=== PATIENT | male | born 1970 | race Caucasian/White ===

== ENCOUNTER 2018-03-11 12:13 | Day surgery (SDC) | payer BC ==
[~2018-03-11] VITALS: Ht 172.7 cm; Wt 111.1 kg
[~2018-03-11 12:13] MED LIST: AMBIEN10 MG PO; CIPRO500 MG; COLESTID5 GM; CYCLOBENZAPRINE10 MG PO; ERYTHROMYCIN3.5 GM OD; FENOFIBRATE40 MG PO; FLAGYL500 MG PO; LISINOPRIL10 MG PO; NORCO 5-325 TA1 EACH PO; PRILOSEC20 MG PO; RESTASIS1 DROP; VIAGRA100 MG PO
--- NOTE | 2018-03-11 13:41 | NUR ---
03/11/18 1341 Dee Noel 1328 PT ARRIVED DROWSY AND TALKING PT DENIES NAUSEA AND PAIN. RESP EVEN AND UNLABORED. 1338 PT TAKING SMALL SIPS OF SODA. 1340 O2 REMOVED O2 SAT 97%.
--- NOTE | 2018-03-11 16:27 | OR ---
[facility] [address], [place] [address] Signed DATE OF OPERATION: 03/11/2018 SURGEON: Dayami Mcqueen MD PREOPERATIVE DIAGNOSES: 1. Gastroesophageal reflux symptoms, no prior history of upper endoscopy. 2. Left-sided abdominal pain, clinical diverticulitis history. POSTOPERATIVE DIAGNOSES: 1. Hiatal hernia with no active esophagitis. 2. Diverticulosis of sigmoid and left colon without obvious inflammation. 3. Sessile polyps x2 (15 cm and 10 cm). PROCEDURES PERFORMED: 1. Total colonoscopy to the cecum with cold snare polypectomy x2. 2. Upper endoscopy with biopsy. ANESTHESIA: Intravenous sedation with fentanyl 200 mcg and Versed 8 mg. INDICATIONS FOR PROCEDURE: This 47-year-old white man is a patient of Dr. Connor Shields. He has had longstanding reflux problems without associated dysphagia, but increasing upper abdominal pain on the left side. He is on PPI medication. He has no dysphagia. He has no family history of esophageal or stomach cancer. He was admitted to undergo upper endoscopy to assess his issue of reflux, for which he was treated with PPI medication, particularly given persisting left upper abdominal pain. Additionally, he has been treated for diverticulitis on a clinical basis and continues to have episodic left lower abdominal pain. He is to undergo colonoscopy on that basis. The risks of bleeding, infection, and perforation related to both procedures were reviewed in detail. He understands and wished to proceed. FINDINGS: On upper endoscopy, the esophagus looked reasonably normal. No sign of obvious Kaur's epithelium, stricture, or neoplasm. He did have a poor flap valve consistent with hiatal hernia. There was no sign of ulceration and CLOtest is equivocal 30 minutes post procedure. On colonoscopy, the prep was excellent. Complete colonoscopy was undertaken to the Electronically Signed By: DAYAMI MCQUEEN MD 03/11/18 1627 PATIENT NAME: JUS CHARLES OPERATIVE REPORT DATE OF : 74 REPORT #: [id number] PHYSICIAN: DAYAMI MCQUEEN MD PCP: CONNOR SHIELDS MD REPORT IS CONFIDENTIAL AND NOT TO BE RELEASED WITHOUT AUTHORIZATION [facility] [address], [place] [address] Signed cecum without question. He had numerous diverticula of the sigmoid and left colon, no sign of inflammation. There were two sessile polyps, one in the rectosigmoid, the other in the rectum, both were excised with cold snare polypectomy technique. He additionally had internal hemorrhoidal changes. DESCRIPTION OF PROCEDURE: The patient was brought to the endoscopy suite, given topical Hurricaine spray hypopharyngeal anesthesia, and placed in lateral decubitus position. He was given intravenous sedation to the point of slurred speech and nystagmus. A bite block was placed. An Olympus video upper endoscope was passed in the hypopharynx, vocal cords visualized as normal. Scope was advanced to the esophagus without problem. Throughout its length, it looked reasonably normal. Scope was passed in to the stomach, which was insufflated with air. There was no sign of bile in the stomach. Rugal folds appeared normal. The stomach was insufflated and a small gastric polyp was noted, this was excised with cold morcellation technique and passed for pathology. Pylorus was normal. Scope was passed through into the duodenum, the duodenum was normal. Biopsies were taken of the third and bulbar portions. Scope was withdrawn to the stomach, where antral biopsies were obtained. Retroflexed view undertaken showing a poor flap valve. CLOtest biopsies were taken for H pylori evaluation as well. Scope was straightened and withdrawn to the distal esophagus. There was no evidence of stricture, neoplasm, or varices. No signs of Kaur's epithelium. Biopsies were taken of the distal esophagus as there may be mild chronic inflammation. The remaining esophagus appeared normal. Scope was removed. Plans were then made for colonoscopy. Additional sedation was given. Digital rectal examination was normal. Olympus video colonoscope was passed in the rectum and manipulated throughout the colon ultimately intubating the cecum itself. The ileocecal valve and appendiceal orifice were normal. Scope was withdrawn from that point showing no sign of abnormality, until the left colon with diverticula were noted. At about 15 cm from the anal verge, a sessile polyp was noted and this was excised with cold snare polypectomy technique. Observation showed no untoward bleeding. The scope was withdrawn a bit further and retroflexed view in the rectum showed a polyp in the low rectum. This too was excised with cold snare technique and passed for pathology. There were some internal hemorrhoidal changes noted as well. The scope was removed. The patient was taken to the recovery room in good condition. CONCLUDING DIAGNOSES: 1. Clinical reflux with poor flap valve and small hiatal hernia. No sign of esophagitis endoscopically and no Kaur's epithelium. 2. Diverticulosis, likely accounting for left-sided abdominal pain. Two small polyps Electronically Signed By: DAYAMI MCQUEEN MD 03/11/18 1627 PATIENT NAME: JUS CHARLES OPERATIVE REPORT DATE OF : 74 REPORT #: [id number] PHYSICIAN: DAYAMI MCQUEEN MD PCP: CONNOR SHIELDS MD REPORT IS CONFIDENTIAL AND NOT TO BE RELEASED WITHOUT AUTHORIZATION [place] [id number] [place] [id number] Signed excised as well. Internal hemorrhoids noted. PLAN: Recommend continued use of PPI medication, Prilosec, him to initiate high-fiber diet. He will return to see me in approximately 4-6 weeks. A repeat colonoscopy will be recommended in 3 years or sooner if clinically indicated. MD CHIRAG Lainez/CHEVYL /[id number] cc: Connor Shields MD Copies: CONNOR SHIELDS MD ~ Electronically Signed By: DAYAMI MCQUEEN MD 03/11/18 1627 PATIENT NAME: JUS CHARLES OPERATIVE REPORT DATE OF : 74 REPORT #: [id number] PHYSICIAN: DAYAMI MCQUEEN MD PCP: CONNOR SHIELDS MD REPORT IS CONFIDENTIAL AND NOT TO BE RELEASED WITHOUT AUTHORIZATION
== END 2018-03-11 14:39 | disposition home or self-care (01) ==
LOC: OPS 12:13 → DS 12:13 → OPS 13:00
PROVIDERS: Surgery
PROC: 0DB38ZX Excision of Lower Esophagus, Via Natural or Artificial Opening Endoscopic, Diagnostic (ICD-10-PCS; 2018-03-11)
PROC: 0DBP8ZZ Excision of Rectum, Via Natural or Artificial Opening Endoscopic (ICD-10-PCS; 2018-03-11)
PROC: 0DBN8ZZ Excision of Sigmoid Colon, Via Natural or Artificial Opening Endoscopic (ICD-10-PCS; 2018-03-11)
PROC: 0DB98ZX Excision of Duodenum, Via Natural or Artificial Opening Endoscopic, Diagnostic (ICD-10-PCS; principal; 2018-03-11 13:00)
PROC: 0DB68ZX Excision of Stomach, Via Natural or Artificial Opening Endoscopic, Diagnostic (ICD-10-PCS; 2018-03-11 13:00)
DX: D12.7 Benign neoplasm of rectosigmoid junction (principal); D12.8 Benign neoplasm of rectum; K57.30 Diverticulosis of large intestine without perforation or abscess without bleeding; K29.80 Duodenitis without bleeding; K21.0 Gastro-esophageal reflux disease with esophagitis; K44.9 Diaphragmatic hernia without obstruction or gangrene; K31.9 Disease of stomach and duodenum, unspecified; K31.7 Polyp of stomach and duodenum; E66.9 Obesity, unspecified; I10 Essential (primary) hypertension; G47.30 Sleep apnea, unspecified; E66.01 Morbid (severe) obesity due to excess calories; K43.2 Incisional hernia without obstruction or gangrene; K52.9 Noninfective gastroenteritis and colitis, unspecified; Z88.5 Allergy status to narcotic agent; Z99.89 Dependence on other enabling machines and devices; Z68.37 Body mass index [BMI] 37.0-37.9, adult
CPT/HCPCS: 99153; G0500; J2250; J3010; J7120